=== PATIENT | female | born 1995 | race Caucasian/White ===

== ENCOUNTER 2025-04-11 18:42 | Emergency (ER) | payer SELFPAY ==
[~2025-04-11] VITALS: Ht 149.9 cm; Wt 66.0 kg
[2025-04-11 18:47] VITALS: BP 112/83; TEMP 36.7; O2SAT 98
[2025-04-11 18:48] VITALS: PULSE 134; RESP 16; O2SAT 98
[2025-04-11] MEDS: DIPHENHYDRAMINE 50MG/ML VIAL IM ONE (19:24)
[2025-04-11] MEDS ORDERED: ONDANSETRON 4MG ODT PO STA (20:10)
[2025-04-11] MEDS ORDERED: MAGNESIUM/ALUMINUM HYDROXIDE/SIMETHICONE 30ML UDC PO STA (20:10)
[2025-04-11] MEDS ORDERED: DICYCLOMINE 10 MG/5 ML ORAL SYR PO STA (20:10)
[2025-04-11] MEDS ORDERED: FAMOTIDINE 20MG TABLET PO ONE (20:15)
== END 2025-04-11 20:16 | disposition home or self-care (01) ==
LOC: ER 18:42
DX: G24.09 Other drug induced dystonia (principal); F32.89 Other specified depressive episodes; Z88.6 Allergy status to analgesic agent; Z79.899 Other long term (current) drug therapy
CPT/HCPCS: 96372; 99283; Q0162; J1200; Z7610